=== PATIENT | female | born 1935 | race Two or more races ===

== ENCOUNTER 2018-08-04 12:23 | Inpatient (IN) | payer OTHER ==
[~2018-08-04] VITALS: Ht 160 cm; Wt 36.3 kg
[~2018-08-04 12:23] MED LIST: ARICEPT10 MG; ASPIR 8181 MG
[2018-08-04] MEDS ORDERED: SYMBICORT 16010.2 GM (12:48)
[2018-08-14] MEDS ORDERED: DONEPEZIL HCL10 MG PO (13:14)
[2018-08-23] MEDS ORDERED: BUDEO.25 IH (13:49)
[2018-08-23] MEDS ORDERED: DILTIAZEM HCL30 MG PO (13:49)
[2018-08-23] MEDS ORDERED: CIPROFLOXA400 MG/200 IV (13:49)
[2018-08-23] MEDS ORDERED: TAMSULOSIN HCL0.4 MG PO (13:49)
[2018-08-23] MEDS ORDERED: INTEGRA F CAPS1 EACH PO (13:49)
[2018-08-23] MEDS ORDERED: ACIDOPHILUS-PE1 EAC2 PO (13:49)
[2018-08-23] MEDS ORDERED: MONTELUKAST SOD10 MG PO (13:49)
[2018-08-23] MEDS ORDERED: POLY119PG PO (13:49)
[2018-08-23] MEDS ORDERED: VITAMIN B-650 MG PO (13:49)
[2018-08-23] MEDS ORDERED: TOBRAMYCIN40 MG/1 ML IV (13:49)
[2018-08-23] MEDS ORDERED: XOPENEX0.63 MG/3 IH (13:49)
[2018-08-23] MEDS ORDERED: ACID CONTROLLER20 MG PO (13:49)
[2018-08-23] MEDS ORDERED: NORFLEX100MG PO (13:49)
[2018-08-23] MEDS ORDERED: FLUCONAZOL200 MG/100 IV (13:49)
[2018-08-23] MEDS ORDERED: DONEPEZIL HCL10 MG PO (13:49)
[2018-08-23] MEDS ORDERED: ABANEU-SL TABL1 EACH SL (13:49)
[2018-08-23] MEDS ORDERED: APETIGEN L790 MG/15 PO (13:49)
== END 2018-08-23 16:30 | disposition home or self-care (01) | DRG 391 ==
LOC: ER 12:23 → SURH 19:14 → SURG 19:14 → SEC-K 19:55 → SURH 20:17 → SURG 22:01
PROVIDERS: ADMIT Internal Medicine Geriatric Medicine
PROC: BW21ZZZ Computerized Tomography (CT Scan) of Abdomen and Pelvis (ICD-10-PCS; 2018-08-04)
PROC: 4A033R1 Measurement of Arterial Saturation, Peripheral, Percutaneous Approach (ICD-10-PCS; 2018-08-04)
PROC: 3E0F7GC Introduction of Other Therapeutic Substance into Respiratory Tract, Via Natural or Artificial Opening (ICD-10-PCS; 2018-08-04)
PROC: 02HV33Z Insertion of Infusion Device into Superior Vena Cava, Percutaneous Approach (ICD-10-PCS; 2018-08-04)
PROC: 4A12X4Z Monitoring of Cardiac Electrical Activity, External Approach (ICD-10-PCS; 2018-08-04)
PROC: B246ZZZ Ultrasonography of Right and Left Heart (ICD-10-PCS; 2018-08-05)
PROC: 0T9B70Z Drainage of Bladder with Drainage Device, Via Natural or Artificial Opening (ICD-10-PCS; 2018-08-05)
PROC: BW21Y0Z Computerized Tomography (CT Scan) of Abdomen and Pelvis using Other Contrast, Unenhanced and Enhanced (ICD-10-PCS; 2018-08-06)
PROC: 3E0336Z Introduction of Nutritional Substance into Peripheral Vein, Percutaneous Approach (ICD-10-PCS; 2018-08-07)
PROC: BB24ZZZ Computerized Tomography (CT Scan) of Bilateral Lungs (ICD-10-PCS; 2018-08-13)
PROC: 0W9H30Z Drainage of Retroperitoneum with Drainage Device, Percutaneous Approach (ICD-10-PCS; principal; 2018-08-14)
PROC: 0W993ZZ Drainage of Right Pleural Cavity, Percutaneous Approach (ICD-10-PCS; 2018-08-15)
PROC: 8E0ZXY6 Isolation (ICD-10-PCS; 2018-08-17)
DX: K57.20 Diverticulitis of large intestine with perforation and abscess without bleeding (principal); S72.012A Unspecified intracapsular fracture of left femur, initial encounter for closed fracture; K68.19 Other retroperitoneal abscess; J45.21 Mild intermittent asthma with (acute) exacerbation; R65.10 Systemic inflammatory response syndrome (SIRS) of non-infectious origin without acute organ dysfunction; J44.1 Chronic obstructive pulmonary disease with (acute) exacerbation; F05 Delirium due to known physiological condition; J90 Pleural effusion, not elsewhere classified; J98.11 Atelectasis; B37.89 Other sites of candidiasis; G72.81 Critical illness myopathy; N13.1 Hydronephrosis with ureteral stricture, not elsewhere classified; I48.0 Paroxysmal atrial fibrillation; Z79.01 Long term (current) use of anticoagulants; R31.0 Gross hematuria; E86.0 Dehydration; E87.8 Other disorders of electrolyte and fluid balance, not elsewhere classified; R73.9 Hyperglycemia, unspecified; G30.0 Alzheimer's disease with early onset; F02.80 Dementia in other diseases classified elsewhere, unspecified severity, without behavioral disturbance, psychotic disturbance, mood disturbance, and anxiety; R94.6 Abnormal results of thyroid function studies; D72.828 Other elevated white blood cell count; N32.89 Other specified disorders of bladder; B96.5 Pseudomonas (aeruginosa) (mallei) (pseudomallei) as the cause of diseases classified elsewhere; B96.4 Proteus (mirabilis) (morganii) as the cause of diseases classified elsewhere; B95.2 Enterococcus as the cause of diseases classified elsewhere

== ENCOUNTER 2018-08-27 16:51 | Inpatient (IN) | payer OTHER ==
[~2018-08-27] VITALS: Ht 152.4 cm; Wt 39.5 kg
[~2018-08-27 16:51] MED LIST changes: +ABANEU-SL TABL1 EACH SL; +ACID CONTROLLER20 MG PO; +ACIDOPHILUS-PE1 EAC2 PO; +APETIGEN L790 MG/15 PO; +BUDEO.25 IH; +CIPROFLOXA400 MG/200 IV; +DILTIAZEM HCL30 MG PO; +DONEPEZIL HCL10 MG PO; +FLUCONAZOL200 MG/100 IV; +INTEGRA F CAPS1 EACH PO; +MONTELUKAST SOD10 MG PO; +NORFLEX100MG PO; +POLY119PG PO; +SYMBICORT 16010.2 GM; +TAMSULOSIN HCL0.4 MG PO; +TOBRAMYCIN40 MG/1 ML IV; +VITAMIN B-650 MG PO; +XOPENEX0.63 MG/3 IH
[2018-09-13] MEDS ORDERED: PRE PROTEIN1 EACH PO (11:39)
[2018-09-13] MEDS ORDERED: XOPENEX0.63 MG/3 IH (11:39)
[2018-09-13] MEDS ORDERED: TAMSULOSIN HCL0.4 MG PO (11:39)
[2018-09-13] MEDS ORDERED: ASPIR 8181 MG PO (11:39)
[2018-09-13] MEDS ORDERED: DILTIAZEM HCL30 MG PO (11:39)
[2018-09-13] MEDS ORDERED: ARICEPT10 MG PO (11:39)
[2018-09-13] MEDS ORDERED: INTEGRA F CAPS1 EACH PO (11:39)
[2018-09-13] MEDS ORDERED: ABANEU-SL TABL1 EACH SL (11:40)
[2018-09-13] MEDS ORDERED: MONTELUKAST SOD10 MG PO (11:40)
[2018-09-13] MEDS ORDERED: APETIGEN L790 MG/15 PO (11:40)
[2018-09-13] MEDS ORDERED: ACIDOPHILUS-PE1 EAC2 PO (11:40)
[2018-09-13] MEDS ORDERED: VITAMIN B-650 MG PO (11:40)
[2018-09-13] MEDS ORDERED: BUDEO.25 IH (11:40)
[2018-09-13] MEDS ORDERED: POLY119PG PO (11:40)
[2018-09-13] MEDS ORDERED: ACID CONTROLLER20 MG PO (11:40)
== END 2018-09-13 18:49 | DRG 602 ==
LOC: ER 16:51 → SURG 20:56 → SURH 20:56 → SURG 08-28 13:04
PROVIDERS: ADMIT Internal Medicine Geriatric Medicine
PROC: BW21Y0Z Computerized Tomography (CT Scan) of Abdomen and Pelvis using Other Contrast, Unenhanced and Enhanced (ICD-10-PCS; 2018-08-27)
PROC: 8E0ZXY6 Isolation (ICD-10-PCS; 2018-08-27)
PROC: 3E0F7GC Introduction of Other Therapeutic Substance into Respiratory Tract, Via Natural or Artificial Opening (ICD-10-PCS; 2018-08-28)
PROC: 02HV33Z Insertion of Infusion Device into Superior Vena Cava, Percutaneous Approach (ICD-10-PCS; 2018-08-28)
PROC: 0W9F30Z Drainage of Abdominal Wall with Drainage Device, Percutaneous Approach (ICD-10-PCS; principal; 2018-08-29)
PROC: 0W9H30Z Drainage of Retroperitoneum with Drainage Device, Percutaneous Approach (ICD-10-PCS; 2018-09-06)
PROC: 0T9B70Z Drainage of Bladder with Drainage Device, Via Natural or Artificial Opening (ICD-10-PCS; 2018-09-06)
PROC: BW21ZZZ Computerized Tomography (CT Scan) of Abdomen and Pelvis (ICD-10-PCS; 2018-09-12)
DX: L02.211 Cutaneous abscess of abdominal wall (principal); K68.19 Other retroperitoneal abscess; E44.0 Moderate protein-calorie malnutrition; I48.1 Persistent atrial fibrillation; K57.20 Diverticulitis of large intestine with perforation and abscess without bleeding; J44.1 Chronic obstructive pulmonary disease with (acute) exacerbation; R18.8 Other ascites; J90 Pleural effusion, not elsewhere classified; R65.10 Systemic inflammatory response syndrome (SIRS) of non-infectious origin without acute organ dysfunction; J45.21 Mild intermittent asthma with (acute) exacerbation; G72.81 Critical illness myopathy; N13.39 Other hydronephrosis; B37.89 Other sites of candidiasis; E87.6 Hypokalemia; G30.0 Alzheimer's disease with early onset; F02.80 Dementia in other diseases classified elsewhere, unspecified severity, without behavioral disturbance, psychotic disturbance, mood disturbance, and anxiety; N32.89 Other specified disorders of bladder; E86.0 Dehydration; E87.8 Other disorders of electrolyte and fluid balance, not elsewhere classified; R33.8 Other retention of urine; B96.29 Other Escherichia coli [E. coli] as the cause of diseases classified elsewhere; B95.4 Other streptococcus as the cause of diseases classified elsewhere; Z79.01 Long term (current) use of anticoagulants

== ENCOUNTER 2018-09-28 10:27 | Outpatient (CLI) | payer OTHER ==
[~2018-09-28 10:27] MED LIST changes: +ARICEPT10 MG PO; +ASPIR 8181 MG PO; +PRE PROTEIN1 EACH PO
== END 2018-09-28 10:31 | disposition home or self-care (01) ==
LOC: TOM 10:27
DX: K57.20 Diverticulitis of large intestine with perforation and abscess without bleeding (principal); K57.80 Diverticulitis of intestine, part unspecified, with perforation and abscess without bleeding

== ENCOUNTER 2018-09-29 07:43 | Outpatient (CLI) | payer OTHER | END 2018-09-29 07:56 | disposition home or self-care (01) | LOC: NUCLEAR 07:43 | DX: I82.402 Acute embolism and thrombosis of unspecified deep veins of left lower extremity (principal) ==

== ENCOUNTER 2018-09-29 08:38 | Outpatient (CLI) | payer OTHER | END 2018-09-29 08:46 | disposition home or self-care (01) | LOC: LAB 08:38 | DX: K65.1 Peritoneal abscess (principal); K57.20 Diverticulitis of large intestine with perforation and abscess without bleeding ==

== ENCOUNTER 2018-10-20 07:33 | Outpatient (CLI) | payer OTHER | END 2018-10-20 07:35 | disposition home or self-care (01) | LOC: TOM 07:33 | DX: R10.84 Generalized abdominal pain (principal) | CPT/HCPCS: 74177; Q9965 ==

== ENCOUNTER 2018-11-25 07:46 | Outpatient (CLI) | payer OTHER | END 2018-11-25 07:50 | disposition home or self-care (01) | LOC: LAB 07:46 | DX: K65.1 Peritoneal abscess (principal); N39.0 Urinary tract infection, site not specified; D64.89 Other specified anemias; B96.29 Other Escherichia coli [E. coli] as the cause of diseases classified elsewhere ==

== ENCOUNTER → 2018-12-07 | Outpatient (CLI) | payer OTHER | END | disposition home or self-care (01) | LOC: NUCLEAR 09:37 | DX: I82.409 Acute embolism and thrombosis of unspecified deep veins of unspecified lower extremity (principal) ==

== ENCOUNTER 2020-02-19 12:00 | Outpatient (CLI) | payer OTHER | END 2020-02-19 18:50 | disposition home or self-care (01) | LOC: PPH VACUNA 12:00 | PROVIDERS: ATTEND Emergency Medicine Pediatric Emergency Medicine | DX: Z23 Encounter for immunization (principal) ==

== ENCOUNTER 2021-01-08 20:18 | Emergency (ER) | payer OTHER ==
[~2021-01-08] VITALS: Ht 160 cm; Wt 45.4 kg
[2021-01-09] MEDS ORDERED: CIPRO500 MG PO (00:22)
== END 2021-01-09 02:04 | disposition home or self-care (01) ==
LOC: ER 20:18
DX: K57.92 Diverticulitis of intestine, part unspecified, without perforation or abscess without bleeding (principal); N28.1 Cyst of kidney, acquired; N39.0 Urinary tract infection, site not specified; R10.32 Left lower quadrant pain

== ENCOUNTER 2021-01-24 10:01 | Outpatient (CLI) | payer OTHER ==
[~2021-01-24 10:01] MED LIST changes: +CIPRO500 MG PO
== END 2021-01-24 10:08 | disposition home or self-care (01) ==
LOC: LAB 10:01
PROVIDERS: ATTEND Internal Medicine Geriatric Medicine
DX: E03.8 Other specified hypothyroidism (principal); N39.0 Urinary tract infection, site not specified; I11.9 Hypertensive heart disease without heart failure; E11.9 Type 2 diabetes mellitus without complications

== ENCOUNTER → 2021-03-16 14:57 | Outpatient (CLI) | payer OTHER | END | disposition home or self-care (01) | LOC: LAB 14:57 | PROVIDERS: ATTEND Internal Medicine Geriatric Medicine | DX: N39.0 Urinary tract infection, site not specified (principal) ==

== ENCOUNTER → 2021-03-18 09:35 | Outpatient (CLI) | payer OTHER | END | disposition home or self-care (01) | LOC: LAB 09:35 | PROVIDERS: ATTEND Internal Medicine Geriatric Medicine | DX: N39.0 Urinary tract infection, site not specified (principal); I11.9 Hypertensive heart disease without heart failure; E03.9 Hypothyroidism, unspecified; E11.9 Type 2 diabetes mellitus without complications; E78.2 Mixed hyperlipidemia; D64.9 Anemia, unspecified ==